=== PATIENT | male | born 1985 | race Caucasian/White ===

== ENCOUNTER 2018-12-23 19:08 | Inpatient (IN) | payer BC ==
[2018-12-23] MEDS: SOD CHLORIDE 0.9% 1,000 ML IV ×2 (19:36→21:44)
[2018-12-23] MEDS: LORAZEPAM 2 MG INJ IV ×2 (19:46→21:12)
[2018-12-23 19:53] LABS: WHITE BLOOD COUNT 16.5 10^3/ul (4.8-10.8)
[2018-12-23 19:53] LABS: ABNORMAL IP MESSAGE 1; HEMATOCRIT 51.5 % (42.0-52.0); HEMOGLOBIN 16.5 g/dl (14.0-18.0); MEAN CORPUSCULAR HEMOGLOBIN 30.7 pg (29.0-33.0); MEAN CORPUSCULAR VOLUME 95.7 fl (82.0-101.0); MEAN PLATELET VOLUME 10.6 fl (7.4-10.4); PLATELET COUNT 249 10^3/UL (140-415); POSITIVE DIFF @See below; RED BLOOD COUNT 5.38 10^6/ul (4.70-6.10); RED CELL DISTRIBUTION WIDTH 11.8 % (11.5-14.5)
[2018-12-23] MEDS: LEVETIRACETAM 1000 MG (PMX) 100 ML IVPB (19:54)
[2018-12-23 19:55] LABS: ADD MAN DIFF? YES
[2018-12-23 20:03] LABS: ALANINE AMINOTRANSFERASE 12 IU/L (13-69); ALBUMIN 5.8 g/dl (3.3-4.9); ALBUMIN/GLOBULIN RATIO 1.61; ALKALINE PHOSPHATASE 64 IU/L (42-121); ANION GAP 38 (5-13); ASPARTATE AMINO TRANSFERASE 43 IU/L (15-46); BILIRUBIN,INDIRECT 0.3 mg/dl (0-1.1); BILIRUBIN,TOTAL 0.3 mg/dl (0.2-1.3); BLOOD UREA NITROGEN 16 mg/dl (7-20); CALCIUM 10.6 mg/dl (8.4-10.2); CHLORIDE 102 mmol/L (97-110); Estimated GFR 46 mL/min (>60); GLUCOSE 146 mg/dl (70-220); POTASSIUM 4.4 mmol/L (3.5-5.1); SODIUM 146 mmol/L (135-144); TOTAL PROTEIN 9.4 g/dl (6.1-8.1)
[2018-12-23 20:06] LABS: CARBON DIOXIDE 6 mmol/L (21-31)
[2018-12-23 20:10] LABS: INR 1.07; PT RATIO 1.1
[2018-12-23 20:19] LABS: ETHANOL < 10.0 mg/dl (0-0); TROPONIN-I < 0.012 ng/ml (0.000-0.120)
[2018-12-23 20:27] LABS: AADO2 Arterial 10.8 mmHg (7.0-24.0); Allen Test ACCEPTAB; Arterial Base Excess -9.4 mmol/L (-3.0-3); Arterial Blood Gas Oxygen Sat 94.6 mmHG (95.0-98.0); Arterial COHb 0.3 % (0.0-3.0); Arterial Fraction of Oxyhgb 93.9 % (93.0-99.0); Arterial HCO3 17.5 mmol/L (22.0-26.0); Arterial MetHb 0.4 % (0.0-1.5); Arterial pCO2 41.4 mmhg (35-45); MODE ROOM AIR; Site Right Radial
[2018-12-23 20:54] LABS: ANISOCYTOSIS 2+ (0-0); BAND NEUTROPHILS #M 0.8 10^3/ul (0.0-0.6); BAND NEUTROPHILS % (M) 5 % (0-4); BASOPHIL #M 0.3 10^3/ul (0.0-0.0); BASOPHILS % (M) 2 % (0-2); ERYTHROBLAST% (NRBC) (M) 1 % (0-0); GIANT THROMBO% (M) 1 % (0-0); LYMPHOCYTES #M 7.7 10^3/ul (0.8-2.9); LYMPHOCYTES % (M) 47 % (15-51); METAMYELOCYTES #M 0.3 10^3/ul (0.0-0.0); METAMYELOCYTES %M 2 % (0-0); MICROCYTOSIS 2+ (0-0); MONOCYTE #M 0.1 10^3/ul (0.3-0.9); MONOCYTES % (M) 1 % (0-11); MYELOCYTES #M 0.1 10^3/ul (0.0-0.0); MYELOCYTES % (M) 1 % (0-0); PLATELET ESTIMATE NORMAL; POIKILOCYTOSIS 2+ (0-0); POLYCHROMASIA 3+ (0-0); PROMYELOCYTES #M 0.1 10^3/ul (0-0); PROMYELOCYTES % (M) 1 % (0-0); SEG NEUT #M 6.9 10^3/ul (1.6-7.5); SEGMENTED NEUTROPHILS (M) % 41 % (39-77); SMUDGE%M 1 % (0-0)
[2018-12-23] MEDS: PROCHLORPERAZINE 10 MG INJ IV (21:12)
[2018-12-23 21:47] LABS: AMPHETAMINE/METHAMPHETAMINE Negative (NEGATIVE); BARBITURATES Negative (NEGATIVE); BENZODIAZEPINES Negative (NEGATIVE); CANNABINOIDS Negative (NEGATIVE); COCAINE Negative (NEGATIVE); OPIATES Negative (NEGATIVE)
[2018-12-23] MEDS ORDERED: ONDANSETRON 4 MG INJ IV (22:00)
[2018-12-23] MEDS ORDERED: ACETAMINOPHEN 325 MG TAB PO (22:00)
[2018-12-23] MEDS ORDERED: BISACODYL (EC) 5 MG TAB PO (22:00)
[2018-12-23] MEDS ORDERED: LORAZEPAM 2 MG INJ IV (22:00)
[2018-12-23] MEDS ORDERED: NACL 0.9% 3 ML SYG IV (22:00)
[2018-12-23] MEDS ORDERED: DOCUSATE SODIUM 100 MG CAP PO (22:00)
[2018-12-23] MEDS: HALOPERIDOL 5 MG INJ IV (22:14)
[2018-12-23 22:15] LABS: ALANINE AMINOTRANSFERASE 25 IU/L (13-69); ALBUMIN 4.6 g/dl (3.3-4.9); ALBUMIN/GLOBULIN RATIO 1.64; ALKALINE PHOSPHATASE 47 IU/L (42-121); ANION GAP 9 (5-13); ASPARTATE AMINO TRANSFERASE 35 IU/L (15-46); BILIRUBIN,INDIRECT 0.3 mg/dl (0-1.1); BILIRUBIN,TOTAL 0.3 mg/dl (0.2-1.3); BLOOD UREA NITROGEN 20 mg/dl (7-20); CALCIUM 9.4 mg/dl (8.4-10.2); CARBON DIOXIDE 25 mmol/L (21-31); CHLORIDE 109 mmol/L (97-110); CREATININE 1.27 mg/dl (0.61-1.24); Estimated GFR > 60 mL/min (>60); GLUCOSE 121 mg/dl (70-220); POTASSIUM 3.7 mmol/L (3.5-5.1); SODIUM 143 mmol/L (135-144); TOTAL PROTEIN 7.4 g/dl (6.1-8.1)
[2018-12-23 22:16] LABS: CARBAMAZEPINE (TEGRETOL) < 3.0 ug/ml (8.0-12.0); PHENYTOIN (DILANTIN) < 3.0 ug/ml (10.0-20.0)
[2018-12-23 22:19] LABS: VALPROATE < 10 ug/ml (50-100)
[2018-12-24] MEDS: SOD CHLORIDE 0.9% 1,000 ML IV ×3 (05:49→20:25)
[2018-12-24 06:09] LABS: ADD MAN DIFF? NO
[2018-12-24 06:16] LABS: BASOPHILS % 0.3 % (0.0-2.0); HEMATOCRIT 38.5 % (42.0-52.0); HEMOGLOBIN 13.5 g/dl (14.0-18.0); LYMPHOCYTES # 0.9 10^3/ul (0.8-2.9); LYMPHOCYTES % 7.5 % (15.0-51.0); MEAN CORPUSCULAR HEMOGLOBIN 30.7 pg (29.0-33.0); MEAN CORPUSCULAR HGB CONC 35.1 g/dl (32.0-37.0); MEAN CORPUSCULAR VOLUME 87.5 fl (82.0-101.0); MEAN PLATELET VOLUME 9.9 fl (7.4-10.4); MONOCYTES % 8.5 % (0.0-11.0); NEUTROPHIL # 9.8 10^3/ul (1.6-7.5); NEUTROPHILS % 83.4 % (39.0-77.0); PLATELET COUNT 140 10^3/UL (140-415)
[2018-12-24 06:16] LABS: WHITE BLOOD COUNT 11.7 10^3/ul (4.8-10.8)
[2018-12-24 06:42] LABS: ALANINE AMINOTRANSFERASE 21 IU/L (13-69); ALBUMIN 4.2 g/dl (3.3-4.9); ALBUMIN/GLOBULIN RATIO 1.68; ALKALINE PHOSPHATASE 35 IU/L (42-121); ANION GAP 9 (5-13); ASPARTATE AMINO TRANSFERASE 45 IU/L (15-46); BILIRUBIN,INDIRECT 0.5 mg/dl (0-1.1); BILIRUBIN,TOTAL 0.5 mg/dl (0.2-1.3); BLOOD UREA NITROGEN 29 mg/dl (7-20); CALCIUM 9.1 mg/dl (8.4-10.2); CARBON DIOXIDE 25 mmol/L (21-31); CHLORIDE 108 mmol/L (97-110); CHOL/HDL RATIO 3.7 RATIO; CHOLESTEROL 176 mg/dl (100-200); CREATININE 2.03 mg/dl (0.61-1.24); Estimated GFR 38 mL/min (>60); GLUCOSE 94 mg/dl (70-220); HDL CHOLESTEROL 47 mg/dl (28-63); LDL CHOLESTEROL,CALCULATED 118 mg/dl; POTASSIUM 4.3 mmol/L (3.5-5.1); SODIUM 142 mmol/L (135-144); TOTAL PROTEIN 6.7 g/dl (6.1-8.1); TRIGLYCERIDES 53 mg/dl (0-149)
[2018-12-24 07:05] LABS: THYROID STIMULATING HORMONE 0.554 MIU/L (0.465-4.680)
[2018-12-24] MEDS: LEVETIRACETAM 1000 MG (PMX) 100 ML IVPB (08:29)
[2018-12-24] MEDS: FAMOTIDINE 20 MG INJ IV ×2 (13:05→20:24)
[2018-12-24 13:57] LABS: CREATINE KINASE 5572 IU/L (23-200)
[2018-12-24] MEDS: ONDANSETRON 4 MG INJ IV ×2 (14:33→20:24)
[2018-12-24] MEDS: VALPROATE INJ 1,500 MG in SOD CHLORIDE 0.9% 100 ML IVPB (15:39)
[2018-12-24 16:34] LABS: ADD UMIC YES; UR ASCORBIC ACID NEGATIVE (NEGATIVE); UR BACTERIA FEW /HPF (NONE SEEN); UR BILIRUBIN (Dip) NEGATIVE (NEGATIVE); UR BLOOD (Dip) 2+ mg/dL (NEGATIVE); UR CLARITY CLEAR (CLEAR); UR COLOR YELLOW (YELLOW); UR GLUCOSE (Dip) NEGATIVE (NEGATIVE); UR KETONES (Dip) NEGATIVE (NEGATIVE); UR LEUKOCYTE ESTERASE (Dip) NEGATIVE Leu/ul (NEGATIVE); UR MUCUS FEW /HPF (NONE SEEN); UR NITRITE (Dip) NEGATIVE (NEGATIVE); UR RBC 4 /HPF (0-5); UR SPECIFIC GRAVITY (Dip) 1.008 (1.003-1.030); UR TOTAL PROTEIN (Dip) 2+ mg/dl (NEGATIVE); UR UROBILINOGEN (Dip) NEGATIVE (NEGATIVE); UR WBC 1 /HPF (0-5)
[2018-12-24] MEDS: ACETAMINOPHEN 325 MG TAB PO (20:25)
[2018-12-24] MEDS: VALPROATE INJ 1,000 MG in SOD CHLORIDE 0.9% 100 ML IVPB (20:25)
[2018-12-24] MEDS: DOCUSATE SODIUM 100 MG CAP PO (22:44)
[2018-12-25] MEDS: SOD CHLORIDE 0.9% 1,000 ML IV ×2 (04:47→09:21)
[2018-12-25] MEDS: FAMOTIDINE 20 MG INJ IV ×2 (09:21→21:19)
[2018-12-25] MEDS: VALPROATE INJ 1,000 MG in SOD CHLORIDE 0.9% 100 ML IVPB ×2 (09:22→21:22)
[2018-12-25] MEDS: DOCUSATE SODIUM 100 MG CAP PO ×2 (09:22→21:17)
[2018-12-25 11:15] LABS: ADD MAN DIFF? NO
[2018-12-25 11:21] LABS: ABNORMAL IP MESSAGE 1; BASOPHILS % 0.2 % (0.0-2.0); HEMATOCRIT 37.7 % (42.0-52.0); HEMOGLOBIN 13.2 g/dl (14.0-18.0); LYMPHOCYTES # 0.2 10^3/ul (0.8-2.9); LYMPHOCYTES % 2.1 % (15.0-51.0); MEAN CORPUSCULAR HEMOGLOBIN 31.1 pg (29.0-33.0); MEAN CORPUSCULAR VOLUME 88.9 fl (82.0-101.0); MONOCYTE # 0.4 10^3/ul (0.3-0.9); MONOCYTES % 3.8 % (0.0-11.0); NEUTROPHIL # 9.6 10^3/ul (1.6-7.5); NEUTROPHILS % 92.4 % (39.0-77.0); PLATELET COUNT 89 10^3/UL (140-415); POSITIVE DIFF @See below; RED BLOOD COUNT 4.24 10^6/ul (4.70-6.10); RED CELL DISTRIBUTION WIDTH 11.8 % (11.5-14.5)
[2018-12-25 11:21] LABS: WHITE BLOOD COUNT 10.4 10^3/ul (4.8-10.8)
[2018-12-25 11:49] LABS: IRON 12 ug/dl (35-150)
[2018-12-25 11:50] LABS: ALANINE AMINOTRANSFERASE 39 IU/L (13-69); ALBUMIN 3.5 g/dl (3.3-4.9); ALKALINE PHOSPHATASE 43 IU/L (42-121); ANION GAP 13 (5-13); ASPARTATE AMINO TRANSFERASE 129 IU/L (15-46); BILIRUBIN,INDIRECT 0.7 mg/dl (0-1.1); BILIRUBIN,TOTAL 0.7 mg/dl (0.2-1.3); BLOOD UREA NITROGEN 54 mg/dl (7-20); CALCIUM 8.3 mg/dl (8.4-10.2); CARBON DIOXIDE 19 mmol/L (21-31); CHLORIDE 104 mmol/L (97-110); CREATININE 4.78 mg/dl (0.61-1.24); Estimated GFR 14 mL/min (>60); GLUCOSE 87 mg/dl (70-220); SODIUM 136 mmol/L (135-144)
[2018-12-25 11:51] LABS: URIC ACID 12.9 mg/dl (3.1-7.9)
[2018-12-25 11:58] LABS: % IRON SATURATION 5 % SAT (22-52); TOTAL IRON BINDING CAPACITY 243 ug/dl (241-421)
[2018-12-25 12:21] LABS: HEPATITIS B SURFACE ANTIGEN NEGATIVE (NEGATIVE)
[2018-12-25 12:38] LABS: HEPATITIS C VIRAL ANTIBODY NEGATIVE (NEGATIVE)
[2018-12-25 12:55] LABS: VALPROATE 70 ug/ml (50-100)
[2018-12-25 13:14] LABS: CREATINE KINASE 11573 IU/L (23-200)
[2018-12-25] MEDS: LACTATED RINGER'S 1,000 ML IV ×2 (13:22→17:37)
[2018-12-25] MEDS: LACTATED RINGER'S 500 ML IV (13:22)
[2018-12-25 21:11] LABS: RAPID PLASMA REAGIN NONREACTIVE (NR)
[2018-12-25] MEDS: ACETAMINOPHEN 325 MG TAB PO (21:18)
[2018-12-25] MEDS: ALLOPURINOL 100 MG TAB PO (21:19)
[2018-12-26] MEDS: LACTATED RINGER'S 1,000 ML IV ×3 (03:03→19:30)
[2018-12-26] MEDS: ACETAMINOPHEN 325 MG TAB PO ×3 (03:25→16:11)
[2018-12-26 05:17] LABS: WHITE BLOOD COUNT 6.7 10^3/ul (4.8-10.8)
[2018-12-26 05:17] LABS: ABNORMAL IP MESSAGE 1; HEMATOCRIT 32.3 % (42.0-52.0); HEMOGLOBIN 11.5 g/dl (14.0-18.0); MEAN CORPUSCULAR HEMOGLOBIN 30.4 pg (29.0-33.0); MEAN CORPUSCULAR HGB CONC 35.6 g/dl (32.0-37.0); MEAN CORPUSCULAR VOLUME 85.4 fl (82.0-101.0); MEAN PLATELET VOLUME 10.2 fl (7.4-10.4); PLATELET COUNT 62 10^3/UL (140-415); POSITIVE DIFF @See below; RED BLOOD COUNT 3.78 10^6/ul (4.70-6.10); RED CELL DISTRIBUTION WIDTH 11.5 % (11.5-14.5)
[2018-12-26 05:26] LABS: ADD MAN DIFF? YES
[2018-12-26 06:03] LABS: ADD UMIC YES; UR ASCORBIC ACID NEGATIVE (NEGATIVE); UR BACTERIA FEW /HPF (NONE SEEN); UR BILIRUBIN (Dip) NEGATIVE (NEGATIVE); UR BLOOD (Dip) 3+ mg/dL (NEGATIVE); UR BUDDING YEAST FEW /HPF (NONE SEEN); UR CLARITY SLIGHTLY CLOUDY (CLEAR); UR COLOR YELLOW (YELLOW); UR GLUCOSE (Dip) NEGATIVE (NEGATIVE); UR KETONES (Dip) NEGATIVE (NEGATIVE); UR LEUKOCYTE ESTERASE (Dip) NEGATIVE Leu/ul (NEGATIVE); UR NITRITE (Dip) NEGATIVE (NEGATIVE); UR RBC 0 /HPF (0-5); UR SQUAMOUS EPITHELIAL CELL MODERATE /HPF (FEW); UR TOTAL PROTEIN (Dip) 1+ mg/dl (NEGATIVE); UR UROBILINOGEN (Dip) NEGATIVE (NEGATIVE); UR WBC 2 /HPF (0-5)
[2018-12-26 06:17] LABS: ALANINE AMINOTRANSFERASE 79 IU/L (13-69); ALBUMIN 2.8 g/dl (3.3-4.9); ALBUMIN/GLOBULIN RATIO 1.27; ALKALINE PHOSPHATASE 32 IU/L (42-121); ANION GAP 12 (5-13); ASPARTATE AMINO TRANSFERASE 305 IU/L (15-46); BILIRUBIN,INDIRECT 0.5 mg/dl (0-1.1); BILIRUBIN,TOTAL 0.5 mg/dl (0.2-1.3); BLOOD UREA NITROGEN 62 mg/dl (7-20); CALCIUM 7.7 mg/dl (8.4-10.2); CARBON DIOXIDE 18 mmol/L (21-31); CHLORIDE 100 mmol/L (97-110); CREATININE 5.08 mg/dl (0.61-1.24); Estimated GFR 13 mL/min (>60); GLUCOSE 102 mg/dl (70-220); POTASSIUM 3.9 mmol/L (3.5-5.1); SODIUM 130 mmol/L (135-144)
[2018-12-26] MEDS: VALPROATE INJ 1,000 MG in SOD CHLORIDE 0.9% 100 ML IVPB (09:29)
[2018-12-26] MEDS: DOCUSATE SODIUM 100 MG CAP PO ×2 (09:29→22:00)
[2018-12-26] MEDS: ALLOPURINOL 100 MG TAB PO ×2 (09:29→20:24)
[2018-12-26] MEDS: FAMOTIDINE 20 MG INJ IV (09:29)
[2018-12-26 09:56] LABS: ANISOCYTOSIS 1+ (0-0); BAND NEUTROPHILS #M 2.3 10^3/ul (0.0-0.6); BAND NEUTROPHILS % (M) 35 % (0-4); LYMPHOCYTES #M 0.1 10^3/ul (0.8-2.9); LYMPHOCYTES % (M) 2 % (15-51); METAMYELOCYTES %M 1 % (0-0); PLATELET ESTIMATE DECREASED; SEG NEUT #M 4.3 10^3/ul (1.6-7.5); SEGMENTED NEUTROPHILS (M) % 62 % (39-77); SMUDGE%M 72 % (0-0)
[2018-12-26] MEDS ORDERED: PIPER-TAZO 2.25 GM (PMX) 50 ML IVPB (10:00)
[2018-12-26] MEDS: PIPER-TAZO 2.25 GM (PMX) 50 ML IVPB ×2 (10:49→16:13)
[2018-12-26] MEDS: LEVOFLOXACIN 750MG/D5W (PMX) 150 ML IVPB (12:26)
[2018-12-26] MEDS ORDERED: VANCOMYCIN IV PER PHARMACY XX (20:00)
[2018-12-27] MEDS: VALPROATE INJ 1,000 MG in SOD CHLORIDE 0.9% 100 ML IVPB ×3 (00:08→20:50)
[2018-12-27] MEDS: FAMOTIDINE 20 MG INJ IV ×3 (00:09→20:50)
[2018-12-27] MEDS: PIPER-TAZO 2.25 GM (PMX) 50 ML IVPB ×4 (01:32→21:30)
[2018-12-27] MEDS: ACETAMINOPHEN 325 MG TAB PO ×3 (02:16→21:51)
[2018-12-27] MEDS: VANCOMYCIN HCL 1.5 GM in SOD CHLORIDE 0.9% 250 ML IVPB (02:21)
[2018-12-27] MEDS: LACTATED RINGER'S 1,000 ML IV ×2 (03:30→09:09)
[2018-12-27 05:46] LABS: WHITE BLOOD COUNT 5.1 10^3/ul (4.8-10.8)
[2018-12-27 05:46] LABS: ABNORMAL IP MESSAGE 1; HEMATOCRIT 30.6 % (42.0-52.0); HEMOGLOBIN 11.1 g/dl (14.0-18.0); MEAN CORPUSCULAR HEMOGLOBIN 31.2 pg (29.0-33.0); MEAN CORPUSCULAR HGB CONC 36.3 g/dl (32.0-37.0); MEAN PLATELET VOLUME 10.2 fl (7.4-10.4); PLATELET COUNT 36 10^3/UL (140-415); POSITIVE DIFF @See below; RED BLOOD COUNT 3.56 10^6/ul (4.70-6.10); RED CELL DISTRIBUTION WIDTH 11.6 % (11.5-14.5)
[2018-12-27 05:52] LABS: ADD MAN DIFF? YES
[2018-12-27 06:07] LABS: ALANINE AMINOTRANSFERASE 114 IU/L (13-69); ALBUMIN 2.6 g/dl (3.3-4.9); ALBUMIN/GLOBULIN RATIO 1.13; ALKALINE PHOSPHATASE 36 IU/L (42-121); ANION GAP 8 (5-13); ASPARTATE AMINO TRANSFERASE 377 IU/L (15-46); BILIRUBIN,INDIRECT 0.4 mg/dl (0-1.1); BILIRUBIN,TOTAL 0.4 mg/dl (0.2-1.3); BLOOD UREA NITROGEN 54 mg/dl (7-20); CALCIUM 8.1 mg/dl (8.4-10.2); CARBON DIOXIDE 21 mmol/L (21-31); CHLORIDE 105 mmol/L (97-110); CREATININE 4.36 mg/dl (0.61-1.24); Estimated GFR 16 mL/min (>60); GLUCOSE 96 mg/dl (70-220); POTASSIUM 3.9 mmol/L (3.5-5.1); SODIUM 134 mmol/L (135-144); TOTAL PROTEIN 4.9 g/dl (6.1-8.1)
[2018-12-27 07:36] LABS: ANISOCYTOSIS 1+ (0-0); BAND NEUTROPHILS #M 3.2 10^3/ul (0.0-0.6); BAND NEUTROPHILS % (M) 63 % (0-4); GIANT THROMBO% (M) 1 % (0-0); LYMPHOCYTES #M 0.1 10^3/ul (0.8-2.9); LYMPHOCYTES % (M) 3 % (15-51); METAMYELOCYTES %M 1 % (0-0); MICROCYTOSIS 1+ (0-0); MONOCYTES % (M) 1 % (0-11); PLATELET ESTIMATE SIG DECREASED; POLYCHROMASIA 1+ (0-0); REACTIVE LYMPHOCYTES #M 0.1 10^3/ul (0.0-0.0); REACTIVE LYMPHOCYTES% (M) 3 % (0-0); SEG NEUT #M 1.6 10^3/ul (1.6-7.5); SEGMENTED NEUTROPHILS (M) % 29 % (39-77); SMUDGE%M 2 % (0-0)
[2018-12-27] MEDS: ALLOPURINOL 100 MG TAB PO ×2 (09:09→20:49)
[2018-12-27] MEDS: DOCUSATE SODIUM 100 MG CAP PO ×2 (09:09→21:30)
[2018-12-27] MEDS: SOD CHLORIDE 0.9% 1,000 ML IV (15:23)
[2018-12-28] MEDS ORDERED: ALBUTEROL/IPRATROPIUM (NEB) 3 ML AMP HHN (02:30)
[2018-12-28] MEDS: SOD CHLORIDE 0.9% 1,000 ML IV ×2 (02:44→13:42)
[2018-12-28 05:28] LABS: ABNORMAL IP MESSAGE 1; HEMATOCRIT 30.7 % (42.0-52.0); HEMOGLOBIN 11.2 g/dl (14.0-18.0); MEAN CORPUSCULAR HEMOGLOBIN 30.9 pg (29.0-33.0); MEAN CORPUSCULAR HGB CONC 36.5 g/dl (32.0-37.0); MEAN CORPUSCULAR VOLUME 84.8 fl (82.0-101.0); MEAN PLATELET VOLUME 11.5 fl (7.4-10.4); POSITIVE DIFF @See below; RED BLOOD COUNT 3.62 10^6/ul (4.70-6.10); RED CELL DISTRIBUTION WIDTH 11.9 % (11.5-14.5)
[2018-12-28 05:28] LABS: WHITE BLOOD COUNT 5.3 10^3/ul (4.8-10.8)
[2018-12-28] MEDS: PANTOPRAZOLE 40 MG INJ IV (05:37)
[2018-12-28] MEDS: PIPER-TAZO 2.25 GM (PMX) 50 ML IVPB ×2 (05:37→15:33)
[2018-12-28 05:40] LABS: ADD MAN DIFF? YES; PLATELET COUNT 36 10^3/UL (140-415)
[2018-12-28 05:50] LABS: VANCOMYCIN,RANDOM 5.8 ug/ml
[2018-12-28 06:08] LABS: ANION GAP 8 (5-13); BLOOD UREA NITROGEN 37 mg/dl (7-20); CALCIUM 8.2 mg/dl (8.4-10.2); CARBON DIOXIDE 23 mmol/L (21-31); CHLORIDE 107 mmol/L (97-110); CREATININE 3.04 mg/dl (0.61-1.24); Estimated GFR 24 mL/min (>60); GLUCOSE 97 mg/dl (70-220); MAGNESIUM 2.3 mg/dl (1.7-2.5); POTASSIUM 3.9 mmol/L (3.5-5.1); SODIUM 138 mmol/L (135-144)
[2018-12-28 06:59] LABS: VALPROATE 92 ug/ml (50-100)
[2018-12-28 07:11] LABS: BAND NEUTROPHILS #M 2.6 10^3/ul (0.0-0.6); BAND NEUTROPHILS % (M) 50 % (0-4); BURR CELLS 1+ (0-0); LYMPHOCYTES #M 0.4 10^3/ul (0.8-2.9); LYMPHOCYTES % (M) 8 % (15-51); PLATELET ESTIMATE SIG DECREASED; POIKILOCYTOSIS 1+ (0-0); POLYCHROMASIA 1+ (0-0); REACTIVE LYMPHOCYTES #M 0.3 10^3/ul (0.0-0.0); REACTIVE LYMPHOCYTES% (M) 7 % (0-0); SEGMENTED NEUTROPHILS (M) % 35 % (39-77); SMUDGE%M 1 % (0-0)
[2018-12-28 08:08] LABS: CREATINE KINASE 13989 IU/L (23-200)
[2018-12-28] MEDS: VALPROATE INJ 1,000 MG in SOD CHLORIDE 0.9% 100 ML IVPB ×2 (08:29→22:37)
[2018-12-28] MEDS: ALLOPURINOL 100 MG TAB PO ×2 (09:00→21:22)
[2018-12-28] MEDS: DOCUSATE SODIUM 100 MG CAP PO ×2 (10:00→21:23)
[2018-12-28] MEDS: VANCOMYCIN HCL 1.5 GM in SOD CHLORIDE 0.9% 250 ML IVPB (12:49)
[2018-12-28] MEDS: CEFTRIAXONE 2 GM/50 ML (PMX) 50 ML IVPB (18:22)
[2018-12-28] MEDS: ONDANSETRON 4 MG INJ IV (18:27)
[2018-12-28] MEDS: ACETAMINOPHEN 325 MG TAB PO (18:28)
[2018-12-28] MEDS ORDERED: HEPARIN 5,000 UNIT/1 ML VIAL SC (21:00)
[2018-12-28] MEDS: CLINDAMYCIN 600 MG/D5W (PMX) 50 ML IVPB (21:22)
[2018-12-29] MEDS: SOD CHLORIDE 0.9% 1,000 ML IV ×3 (00:40→22:45)
[2018-12-29] MEDS: ACETAMINOPHEN 325 MG TAB PO ×2 (02:20→08:41)
[2018-12-29 05:18] LABS: ADD MAN DIFF? NO
[2018-12-29 05:27] LABS: ABNORMAL IP MESSAGE 1; BASOPHILS % 0.3 % (0.0-2.0); EOSINOPHILS # 0.1 10^3/ul (0.0-0.5); EOSINOPHILS % 0.9 % (0.0-7.0); HEMATOCRIT 34.8 % (42.0-52.0); HEMOGLOBIN 12.2 g/dl (14.0-18.0); LYMPHOCYTES # 1.6 10^3/ul (0.8-2.9); LYMPHOCYTES % 25.1 % (15.0-51.0); MEAN CORPUSCULAR HEMOGLOBIN 30.5 pg (29.0-33.0); MEAN CORPUSCULAR HGB CONC 35.1 g/dl (32.0-37.0); MEAN PLATELET VOLUME 12.1 fl (7.4-10.4); MONOCYTE # 0.9 10^3/ul (0.3-0.9); MONOCYTES % 13.7 % (0.0-11.0); NEUTROPHIL # 3.8 10^3/ul (1.6-7.5); NEUTROPHILS % 59.4 % (39.0-77.0); POSITIVE DIFF @See below; RED CELL DISTRIBUTION WIDTH 12.6 % (11.5-14.5)
[2018-12-29 05:27] LABS: WHITE BLOOD COUNT 6.4 10^3/ul (4.8-10.8)
[2018-12-29 06:00] LABS: ANION GAP 7 (5-13); BLOOD UREA NITROGEN 25 mg/dl (7-20); CALCIUM 8.1 mg/dl (8.4-10.2); CARBON DIOXIDE 22 mmol/L (21-31); CHLORIDE 110 mmol/L (97-110); CREATININE 2.39 mg/dl (0.61-1.24); Estimated GFR 31 mL/min (>60); GLUCOSE 84 mg/dl (70-220); POTASSIUM 3.5 mmol/L (3.5-5.1); SODIUM 139 mmol/L (135-144)
[2018-12-29 06:01] LABS: VALPROATE 83 ug/ml (50-100)
[2018-12-29] MEDS: PANTOPRAZOLE 40 MG INJ IV (06:11)
[2018-12-29] MEDS: CLINDAMYCIN 600 MG/D5W (PMX) 50 ML IVPB ×3 (06:11→22:42)
[2018-12-29 06:16] LABS: PLATELET COUNT 40 10^3/UL (140-415)
[2018-12-29 06:35] LABS: CREATINE KINASE 5772 IU/L (23-200)
[2018-12-29] MEDS: VALPROATE INJ 1,000 MG in SOD CHLORIDE 0.9% 100 ML IVPB ×2 (08:30→20:55)
[2018-12-29] MEDS: ALLOPURINOL 100 MG TAB PO ×2 (08:31→20:57)
[2018-12-29] MEDS: DOCUSATE SODIUM 100 MG CAP PO ×2 (10:00→22:00)
[2018-12-29] MEDS: NYSTATIN SUSP 5 ML CUP PO ×3 (12:53→20:56)
[2018-12-29] MEDS: CHLORHEXIDINE GLUCONATE 15 ML UD CUP MT ×2 (13:48→20:56)
[2018-12-29] MEDS: CEFTRIAXONE 2 GM/50 ML (PMX) 50 ML IVPB (17:52)
[2018-12-29] MEDS: HYDROCODONE/APAP (5/325) TAB PO (17:52)
[2018-12-29] MEDS: ONDANSETRON 4 MG INJ IV (21:07)
[2018-12-29] MEDS: METOCLOPRAMIDE 10 MG INJ IV (23:28)
[2018-12-30] MEDS: HYDROCODONE/APAP (5/325) TAB PO (02:50)
[2018-12-30] MEDS: SOD CHLORIDE 0.9% 1,000 ML IV ×3 (04:20→22:45)
[2018-12-30 05:44] LABS: ADD MAN DIFF? NO
[2018-12-30 05:50] LABS: ABNORMAL IP MESSAGE 1; BASOPHILS % 0.6 % (0.0-2.0); EOSINOPHILS # 0.1 10^3/ul (0.0-0.5); EOSINOPHILS % 1.9 % (0.0-7.0); HEMATOCRIT 32.1 % (42.0-52.0); HEMOGLOBIN 11.2 g/dl (14.0-18.0); LYMPHOCYTES # 1.7 10^3/ul (0.8-2.9); LYMPHOCYTES % 31.3 % (15.0-51.0); MEAN CORPUSCULAR HEMOGLOBIN 30.8 pg (29.0-33.0); MEAN CORPUSCULAR HGB CONC 34.9 g/dl (32.0-37.0); MEAN CORPUSCULAR VOLUME 88.2 fl (82.0-101.0); MEAN PLATELET VOLUME 11.9 fl (7.4-10.4); MONOCYTES % 18.2 % (0.0-11.0); NEUTROPHIL # 2.5 10^3/ul (1.6-7.5); NEUTROPHILS % 46.3 % (39.0-77.0); PLATELET COUNT 43 10^3/UL (140-415); POSITIVE DIFF @See below; RED BLOOD COUNT 3.64 10^6/ul (4.70-6.10); RED CELL DISTRIBUTION WIDTH 12.6 % (11.5-14.5)
[2018-12-30 05:50] LABS: WHITE BLOOD COUNT 5.3 10^3/ul (4.8-10.8)
[2018-12-30] MEDS: PANTOPRAZOLE 40 MG INJ IV (06:07)
[2018-12-30] MEDS: CLINDAMYCIN 600 MG/D5W (PMX) 50 ML IVPB ×3 (06:08→22:10)
[2018-12-30 06:16] LABS: ANION GAP 8 (5-13); BLOOD UREA NITROGEN 16 mg/dl (7-20); CALCIUM 7.9 mg/dl (8.4-10.2); CARBON DIOXIDE 24 mmol/L (21-31); CHLORIDE 106 mmol/L (97-110); CREATINE KINASE 1344 IU/L (23-200); CREATININE 1.82 mg/dl (0.61-1.24); Estimated GFR 43 mL/min (>60); GLUCOSE 98 mg/dl (70-220); POTASSIUM 3.8 mmol/L (3.5-5.1); SODIUM 138 mmol/L (135-144)
[2018-12-30 06:17] LABS: VALPROATE 68 ug/ml (50-100)
[2018-12-30] MEDS: ALLOPURINOL 100 MG TAB PO ×2 (09:24→20:34)
[2018-12-30] MEDS: CHLORHEXIDINE GLUCONATE 15 ML UD CUP MT ×2 (09:24→20:36)
[2018-12-30] MEDS: VALPROATE INJ 1,000 MG in SOD CHLORIDE 0.9% 100 ML IVPB (09:24)
[2018-12-30] MEDS: NYSTATIN SUSP 5 ML CUP PO ×4 (09:24→20:36)
[2018-12-30] MEDS: DOCUSATE SODIUM 100 MG CAP PO ×2 (09:28→22:00)
[2018-12-30] MEDS: METOCLOPRAMIDE 10 MG INJ IV ×2 (12:00→18:26)
[2018-12-30] MEDS: CEFTRIAXONE 2 GM/50 ML (PMX) 50 ML IVPB (18:54)
[2018-12-30] MEDS: DIVALPROEX (EC) 500 MG TAB PO (20:34)
[2018-12-31] MEDS: METOCLOPRAMIDE 10 MG INJ IV
[2018-12-31] MEDS: SOD CHLORIDE 0.9% 1,000 ML IV ×2 (00:13→06:45)
[2018-12-31] MEDS: ACETAMINOPHEN 325 MG TAB PO ×2 (02:12→09:06)
[2018-12-31] MEDS: CLINDAMYCIN 600 MG/D5W (PMX) 50 ML IVPB (06:00)
[2018-12-31] MEDS: PANTOPRAZOLE 40 MG INJ IV (06:00)
[2018-12-31] MEDS: DIVALPROEX (EC) 500 MG TAB PO (09:00)
[2018-12-31] MEDS: ALLOPURINOL 100 MG TAB PO (09:00)
[2018-12-31] MEDS: CHLORHEXIDINE GLUCONATE 15 ML UD CUP MT (09:00)
[2018-12-31] MEDS: NYSTATIN SUSP 5 ML CUP PO (09:00)
[2018-12-31] MEDS: DOCUSATE SODIUM 100 MG CAP PO (10:00)
== END 2018-12-31 11:35 | disposition home or self-care (01) | DRG 871 ==
LOC: 6WM 21:54 → 2NE 12-27 12:10 → E/R 19:08
DX: A40.0 Sepsis due to streptococcus, group A (principal); N17.0 Acute kidney failure with tubular necrosis; J69.0 Pneumonitis due to inhalation of food and vomit; G93.49 Other encephalopathy; E87.2 Acidosis; I82.612 Acute embolism and thrombosis of superficial veins of left upper extremity; N39.0 Urinary tract infection, site not specified; I27.20 Pulmonary hypertension, unspecified; R65.20 Severe sepsis without septic shock; G40.901 Epilepsy, unspecified, not intractable, with status epilepticus; E86.0 Dehydration; T79.6XXA Traumatic ischemia of muscle, initial encounter; X58.XXXA Exposure to other specified factors, initial encounter; E79.0 Hyperuricemia without signs of inflammatory arthritis and tophaceous disease; R74.0 Nonspecific elevation of levels of transaminase and lactic acid dehydrogenase [LDH]; F19.10 Other psychoactive substance abuse, uncomplicated; D69.6 Thrombocytopenia, unspecified
CPT/HCPCS: 36600; 70450; 70553; 71045; 73562; 76705; 76775; 80048; 80053; 80061; 80156; 80164; 80185; 80202; 80307; 81001; 82306; 82550; 82607; 82803; 83540; 83605; 83735; 84443; 84484; 84560; 85025; 85610; 85730; 86592; 86803; 87040-91; 87086; 87340; 92610; 93005; 93306; 93971; 95819; 96374; 96375; 96376; 97161; 99291-25